=== PATIENT | female | born 1980 | race Caucasian/White ===

== ENCOUNTER 2021-09-22 12:20 | Emergency (ER) | payer OTHER ==
[~2021-09-22] VITALS: Ht 154.9 cm; Wt 97.1 kg
[2021-09-22] MEDS ORDERED: ZESTRIL40 MG PO (13:16)
[2021-09-22] MEDS ORDERED: ZOLOFT50 MG PO (13:17)
[2021-09-22] MEDS ORDERED: LIPITOR40 MG PO (13:17)
[2021-09-22] MEDS ORDERED: HUMALOG100 UNIT/1 SUB-Q (13:18)
[2021-09-22] MEDS ORDERED: REGLAN10 MG PO (18:30)
[2021-09-22] MEDS ORDERED: OMEPRAZOLE20 MG PO (18:30)
[2021-09-22] MEDS ORDERED: HYDROCODON-ACE1 EA11 PO (18:30)
== END 2021-09-22 18:55 | disposition home or self-care (01) ==
LOC: ED 12:20
DX: R10.84 Generalized abdominal pain (principal); E11.9 Type 2 diabetes mellitus without complications; I12.9 Hypertensive chronic kidney disease with stage 1 through stage 4 chronic kidney disease, or unspecified chronic kidney disease; E11.22 Type 2 diabetes mellitus with diabetic chronic kidney disease; N18.2 Chronic kidney disease, stage 2 (mild); E11.40 Type 2 diabetes mellitus with diabetic neuropathy, unspecified; E78.00 Pure hypercholesterolemia, unspecified; E66.9 Obesity, unspecified; Z79.899 Other long term (current) drug therapy; Z79.4 Long term (current) use of insulin
CPT/HCPCS: 74177; 76705; 80053; 81001; 83605; 84703; 85025; 96375; 99284-25; A9270; J1170; J1885; J7030; Q9967

== ENCOUNTER 2021-12-18 07:49 | Emergency (ER) | payer OTHER ==
[~2021-12-18] VITALS: Ht 154.9 cm; Wt 99.1 kg
[~2021-12-18 07:49] MED LIST: HUMALOG100 UNIT/1 SUB-Q; HYDROCODON-ACE1 EA11 PO; LIPITOR40 MG PO; OMEPRAZOLE20 MG PO; REGLAN10 MG PO; ZESTRIL40 MG PO; ZOLOFT50 MG PO
[2021-12-18] MEDS ORDERED: FUROSEMIDE80 MG PO (08:47)
[2021-12-18] MEDS ORDERED: LEVONORGESTREL1 EAC2 PO (08:48)
== END 2021-12-18 11:31 | disposition home or self-care (01) ==
LOC: ED 07:49
DX: R10.30 Lower abdominal pain, unspecified (principal); E11.22 Type 2 diabetes mellitus with diabetic chronic kidney disease; I12.9 Hypertensive chronic kidney disease with stage 1 through stage 4 chronic kidney disease, or unspecified chronic kidney disease; E11.40 Type 2 diabetes mellitus with diabetic neuropathy, unspecified; E78.00 Pure hypercholesterolemia, unspecified; E66.9 Obesity, unspecified; Z88.5 Allergy status to narcotic agent; Z79.899 Other long term (current) drug therapy; Z79.4 Long term (current) use of insulin
CPT/HCPCS: 36415; 74177; 80053; 81001; 84703; 85025; 99284-25; Q9967

== ENCOUNTER 2022-04-04 00:57 | Emergency (ER) | payer OTHER ==
[~2022-04-04] VITALS: Ht 154.9 cm; Wt 106.6 kg
[~2022-04-04 00:57] MED LIST changes: +FUROSEMIDE80 MG PO; +LEVONORGESTREL1 EAC2 PO
--- OUTSIDE RECORDS SUMMARY | 2022-04-04 01:00 | XMS ---
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 PHONE: [phone] MIKE RAMÍREZ Specialist Current PHONE: [phone] CARMELA SANTIZO PHONE: [phone] [facility]: Unknown Delfino has no Care Guidelines for this patient. EAngelito VISIT COUNT (12 MO.) 4 [facility] TOTAL 4 NOTE: Visits indicate total known visits. 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 - Other emt intermediate (current) drug therapy 12/18/2021 07:50 [facility] [place] TYPE: Emergency COMPLAINT: - LOWER ABDOMINAL PAIN DIAGNOSES: - Allergy status to narcotic agent - Lower abdominal pain, unspecified - snf (current) use of insulin - Other emt intermediate (current) drug therapy - Hypertensive chronic kidney disease with stage 1 through stage 4 chronic kidney disease, or unspecified chronic kidney disease - Pure hypercholesterolemia, unspecified - Obesity, unspecified - Type 2 diabetes mellitus with diabetic chronic kidney disease - Type 2 diabetes mellitus with diabetic neuropathy, unspecified 09/22/2021 12:[address] 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
== END 2022-04-04 03:05 | disposition home or self-care (01) ==
LOC: ED 00:57
DX: R10.9 Unspecified abdominal pain (principal); G89.29 Other chronic pain; I12.9 Hypertensive chronic kidney disease with stage 1 through stage 4 chronic kidney disease, or unspecified chronic kidney disease; E11.22 Type 2 diabetes mellitus with diabetic chronic kidney disease; N18.2 Chronic kidney disease, stage 2 (mild); E11.40 Type 2 diabetes mellitus with diabetic neuropathy, unspecified; E11.65 Type 2 diabetes mellitus with hyperglycemia; E78.00 Pure hypercholesterolemia, unspecified; Z79.4 Long term (current) use of insulin; Z79.899 Other long term (current) drug therapy; Z88.6 Allergy status to analgesic agent
CPT/HCPCS: 36415; 80053; 81001; 83690; 84703; 85025; 96360; 99284-25; J7030

== ENCOUNTER 2024-07-26 18:19 | Emergency (ER) | payer MEDICARE, OTHER ==
[~2024-07-26] VITALS: Ht 154.9 cm; Wt 103.7 kg
[2024-07-26 19:00] LABS: PH, VENOUS 7.357 (7.31-7.41)
[2024-07-26] MEDS ORDERED: IBLOOD GLUCOSE TEST STRIP 1 EA TEST XX ONE (19:00)
[2024-07-26] MEDS ORDERED: SODIUM CHLORIDE 0.9% 1,000 ML IV ONE (19:00)
[2024-07-26 19:01] LABS: BASOPHILS 0.9 % (0-2); EOSINOPHILS 3.7 % (0-6); HEMATOCRIT 44.1 % (35.0-50.0); HEMOGLOBIN 14.4 g/dL (12.0-18.0); MCHC 32.7 g/dl (30-36); MCV 85.6 fl (81-99); MONOCYTES 8.5 % (0-12); NEUTROPHILS 64.9 % (39-80); PLATELET COUNT 259 K/uL (140-440); RBC 5.15 M/ul (4.3-5.7); RDW 16.9 (10.5-15.0)
[2024-07-26 19:10] LABS: BILIRUBIN, URINE NEGATIVE (negative); BLOOD/HGB, URINE SMALL (Negative); KETONE, URINE NEGATIVE (Negative); LEUK ESTERASE, URINE NEGATIVE (negative); NITRITE, URINE NEGATIVE (negative)
[2024-07-26 19:17] LABS: EPITHELIAL CELLS, URINE SQUAMOUS 3+ /lpf (0-1+); RED BLOOD CELLS, URINE 0-1 /hpf (0-5)
[2024-07-26 19:18] LABS: BACTERIA, URINE RARE /hpf (negative); CASTS, URINE NONE SEEN \\lpf; COLLECTION TYPE, URINE CLEAN CATCH; CRYSTALS, URINE AMORPHOUS URATES 2+ (0-1+); REFLEX CULTURE, URINE No (No)
[2024-07-26 19:19] LABS: ALBUMIN 2.2 g/dL (3.4-5.0); ALBUMIN/GLOBULIN RATIO 0.45 (1.1-2.4); ANION GAP 13.2 (7-21); BILIRUBIN, TOTAL 0.3 ng/dL (0.2-1.0); BUN/CREATININE RATIO 22.87 (6.0-28.6); CALCIUM 8.7 mg/dL (8.5-10.1); CREATININE, SERUM 1.88 mg/dL (0.55-1.02); POTASSIUM 3.2 mmol/L (3.5-5.1); PROTEIN, TOTAL 7.1 g/dL (6.4-8.2)
[2024-07-26] MEDS ORDERED: POTASSIUM CHLORIDE 10 MEQ TABCR PO ONE (19:30)
[2024-07-26 20:15] VITALS: BP 180/80
== END 2024-07-26 20:17 | disposition home or self-care (01) ==
LOC: ED 18:19
PROVIDERS: Emergency Medicine
DX: E11.65 Type 2 diabetes mellitus with hyperglycemia (principal); E11.42 Type 2 diabetes mellitus with diabetic polyneuropathy; E11.22 Type 2 diabetes mellitus with diabetic chronic kidney disease; I12.9 Hypertensive chronic kidney disease with stage 1 through stage 4 chronic kidney disease, or unspecified chronic kidney disease; N18.2 Chronic kidney disease, stage 2 (mild); E78.00 Pure hypercholesterolemia, unspecified; E66.9 Obesity, unspecified; Z68.41 Body mass index [BMI] 40.0-44.9, adult; Z88.5 Allergy status to narcotic agent; Z79.4 Long term (current) use of insulin; Z79.899 Other long term (current) drug therapy
CPT/HCPCS: 36415; 80053; 81001; 82010; 82803; 83735; 84703; 85025; 99283; A9270; J7030